=== PATIENT | male | born 1960 | race Caucasian/White ===

== ENCOUNTER 2019-04-22 01:25 | Inpatient (IN) | payer OTHER ==
[~2019-04-22] VITALS: Ht 170.2 cm; Wt 66.2 kg
[~2019-04-22 01:25] MED LIST: PROBIOTIC1 EAC1 PO; ZANTAC 150MG T150 MG PO
[2019-04-22 01:45] VITALS: BP 188/62
[2019-04-22 02:24] LABS: ABSOLUTE BASOPHILS 0.1 thou/uL (0.0-0.2); ABSOLUTE EOSINOPHILS 0.2 thou/uL (0.0-0.7); ABSOLUTE LYMPHOCYTES 1.2 thou/uL (0.8-5.3); ABSOLUTE MONOCYTES 0.7 thou/uL (0.0-1.2); ABSOLUTE NEUTROPHILS 9.5 thou/uL (1.6-8.1); BASOPHILS 0.5 %; HEMATOCRIT 42.6 % (42.0-52.0); HEMOGLOBIN 14.7 gm/dL (14.0-18.0); LYMPHOCYTES 10.5 %; MCHC 34.5 g/dL (28.0-37.0); MCV 95.7 fL (80.0-100.0); MONOCYTES 6.2 %; MPV 8.5 fl. (7.2-11.1); NUCLEATED RBCS 0 /100WBC; PLATELET COUNT* 171 thou/uL (150-400); POLYS 80.8 %; RBC 4.45 mil/uL (4.50-6.00); RDW-CV 13.8 % (10.5-14.5); WBC 11.7 thou/uL (4.0-11.0)
[2019-04-22 02:33] LABS: CALCIUM 8.9 mg/dL (8.5-10.1); CREATININE 1.2 mg/dL (0.6-1.3); POTASSIUM 4.1 mmol/L (3.5-5.1)
[2019-04-22 02:35] LABS: APTT 24.1 Seconds (25.0-31.3)
[2019-04-22 02:37] LABS: TOTAL BILIRUBIN 0.2 mg/dL (<0.1-1.0); TOTAL PROTEIN 7.7 g/dL (6.4-8.2)
[2019-04-22 04:23] VITALS: BP 159/59
[2019-04-22 08:10] VITALS: BP 169/59
--- NOTE | 2019-04-22 11:08 | EKG ---
[place] [address] ELECTROCARDIOGRAM REPORT Name: CONNIE CUEVAS Room: [address] ADM IN M.R.#: [id number] Admission: 04/22/19 Attend Phys: Tai Santos MD Discharge: Date of : 56 Report #: [id number] THIS REPORT FOR: //name// [facility] Test Date: 2019-04-22 Test Time: 09:08:39 Pat Name: CONNIE CUEVAS Department: Room: [address] Gender: M Set Up Person: : 1960 Requested By: Tai Santos Order Number: [id number] MD: Dontrell Ambrosio Measurements Intervals [place] Rate: 80 P: 51 OR: 145 QRS: 61 QRSD: 81 T: -77 QT: 379 QTc: 438 Interpretive Statements Sinus rhythm Probable left atrial enlargement Anteroseptal infarct, old Repol abnrm suggests ischemia, anterolateral Compared to ECG 09/14/2015 10:28:16 Myocardial infarct finding now present Early repolarization now present Possible ischemia now present Sinus bradycardia no longer present Electronically Signed On 04-22-2019 11:08:13 CROP CONSULTANT by Dontrell Ambrosio [email or web address] <ELECTRONICALLY SIGNED> By: Dontrell Ambrosio MD, FACC 04/22/19 1108 0908 Dontrell Ambrosio MD, FAC /EPI
--- NOTE | 2019-04-22 11:08 | EKG ---
[place] [address] ELECTROCARDIOGRAM REPORT Name: CONNIE CUEVAS Room: [address] ADM IN M.R.#: [id number] Admission: 04/22/19 Attend Phys: Tai Santos MD Discharge: Date of : 56 Report #: [id number] THIS REPORT FOR: //name// [facility] ED Test Date: 2019-04-22 Test Time: 02:50:33 Pat Name: CONNIE CUEVAS Department: Room: [facility] Gender: M Test Lead: AJ : 1960 Requested By: Shirley Crane Order Number: [id number] MD: Dontrell Ambrosio Measurements Intervals [place] Rate: 74 P: 47 VA: 151 QRS: 59 QRSD: 83 T: -88 QT: 394 QTc: 438 Interpretive Statements Sinus rhythm Probable left atrial enlargement Abnormal T, consider ischemia, diffuse leads Compared to ECG 09/14/2015 10:28:16 T-wave abnormality now present Possible ischemia now present Sinus bradycardia no longer present Electronically Signed On 04-22-2019 11:07:51 WIREWORKER SUPERVISOR by Dontrell Ambrosio [email or web address] <ELECTRONICALLY SIGNED> By: Dontrell Ambrosio MD, FACC 04/22/19 1107 0250 0250 Dontrell Ambrosio MD, FAC /EPI
[2019-04-22 11:28] VITALS: BP 169/59
--- NOTE | 2019-04-22 11:57 | NUR ---
PT.IN SURGERY. CM UNABLE TO SEE AT THIS TIME. SAPNA/JULIA COOK CAME BY TO SEE PT.TO DISCUSS MEDICAID. SHE SAID SHE WOULD FOLLOW UP TOMORROW WITH HIM.
--- NOTE | 2019-04-22 19:03 | NUR ---
ASSUMED CARE OF PATIENT AT APPROX 0730. ALERT AND ORIENTED X4. ASSESSMENT COMPLETED AND CHARTED. VSS ON ROOM AIR. [ATIENT TO PACU AT APPROX 1130 AND RETURNED AT 1650. PATIENT REMIANS ALERT AND ORIENTED AND VITALS REMAIN STABLE ON 3 LITERS. NO COMPLAINTS OF PAIN. BANANA BAG STARTED AND INFUSED ORDERED, PATIENT WAS OF UNIT BY THE TIME THE BAG ARRIVED FROM PHARMACY. PATIENT REQUESTED TO HAVE A PILLOW PLACED BETWEEN LEGS RATHER THAN THE ADDUCTOR WEDGE. FALL PRECAUTIONS PLACE. CALL LIGHT WITHIN REACH. HOURLY ROUNDS COMPLETED. NURSING WILL CONTINUE TO MONITOR.
[2019-04-22 19:59] VITALS: BP 172/65
[2019-04-23 04:12] LABS: HEMATOCRIT 36.9 % (42.0-52.0)
[2019-04-23 04:18] LABS: HEMOGLOBIN 12.3 gm/dL (14.0-18.0)
--- NOTE | 2019-04-23 06:57 | NUR ---
ASSUMED CARE OF PT 04/22/19 AT APPROX 1930, PT A&OX4 THROUGHOUT SHIFT, VSS, PT ON O2 1L NC, PAIN MEDS REQUESTED AND ADMINISTERED ORDERED, ASSESSMENTS AND HOURLY ROUNDINGS COMPLETED, WILL CONTINUE TO MONITOR.
[2019-04-23 08:00] VITALS: BP 186/74
--- NOTE | 2019-04-23 14:34 | NUR ---
cm completed initial assessment to discuss d/c plan. pt lives with his friend, Fitz Newton and Fitz's g/f. pt unemployed, has no income or savings so [facility] contacted [facility], [place] [phone] x [phone], re: applying to medicaid. pt states he lost his license d/t DUI. pt states he cant work d/t inability to drive so he has no transportation. pt has no DME. pt's friend concerned about allowing pt to return to his home w/o therapy in place if pt is unable to walk up stairs, as there are 12 stairs to get into home. cm provided pt with a resource packet and good rx card. cm to cont to follow to assist as needed.
--- NOTE | 2019-04-23 15:00 | NUR ---
SPOKE WITH JOÃO/CLEO[employer] SWEETIE EARLIER TODAY ,ABOUT PT.,WITHOUT INSURANCE. PT.WOULD NEED TO BE APPROVED TO GO TO INPT.REHAB BY CNO/PROFESSOR OF LANGUAGES , PENDING ON HOW PT.DOES IN THERAPY. IF DISCHARGED HOME, PT.WILL BE UNABLE TO RECEIVE P.T. HOME HEALTH OR OUTPT.P.T.UNLESS HE IS ABLE TO PAY OUT OF POCKET FOR IT. CM WILL FOLLOW. PLEASE SEE OTHER CM NOTE FROM TODAY.
--- NOTE | 2019-04-23 18:54 | NUR ---
ASSUMED CARE OF PATIENT AT APPROX 0730. ALERT AND ORIENTED X4. ASSESSMENT COMPLETED AND CHARTED. VSS ON ROOM AIR. PAIN MANAGED WITH NORCO NEEDED. PATIENT UP WITH GAIT BELT AND WALKER. USING URINAL AT BEDSIDE WHEN NOT UP IN THE CHAIR. NO OTHER COMPLAINTS THIS SHIFT. FALL PRECAUTIONS IN PLACE. CALL LIGHT WITHIN REACH. HOURLY ROUNDS COMPLETED. NURSING WILL CONTINUE TO MONITOR.
[2019-04-24] VITALS: BP 157/66
[2019-04-24 04:00] VITALS: BP 154/63
--- NOTE | 2019-04-24 06:04 | NUR ---
PATIENT HAS SLEPT WELL THROUGHOUT MOST OF THE NIGHT. VSS ON RA. PAIN WELL CONTROLLED DURING THE SHIFT. MEDICATIONS GIVEN ORDERED AND CHARTED. ASSESSMENT CHARTED. PATIENT HAS ONLY USED BEDSIDE URINAL DURING THE NIGHT. DRESSING TO RIGHT HIP IS C/D/I AND ICE PACK AND SCD'S IN PLACE. FALL PRECAUTIONS IN PLACE AND HOURLY ROUNDS MADE. WILL CONTINUE WITH PLAN OF CARE AND NURSING TO MONITOR.
[2019-04-24 08:00] VITALS: BP 172/69
--- NOTE | 2019-04-24 09:03 | NUR ---
Pt is patient pay, did well with therapies yesterday, Per weekday CM, may be doing too well for acute rehab. Pt placed on aspirin instead of more expensive blood thinner. Unsure if Pt will need DME, but if so, recommend [facility] donating vs purchasing in the the community. Per weekday CM, Pt has limited income.
[2019-04-24 16:00] VITALS: BP 160/54
--- NOTE | 2019-04-24 17:10 | NUR ---
ASSUMED CARE OF PATIENT AT APPROX 0730. ALERT AND ORIENTED X4. ASSESSMENT COMPLETED AND CHARTED. VSS ON ROOM AIR. PAIN MANAGED WITH NORCO, TRAMADOL AND LIDOCAINE PATCH. PATIENT UP TO THE CHAIR TODAY. WORKING WITH THERAPIES AND PROGRESSING TOWARD GOALS. NO OTHER COMPLAINTA THIS SHIFT. FALL PRECAUTIONS IN PLACE. CALL LIGHT WITHIN REACH. HOURLY ROUNDS COMPLETED. NURSING WILL CONTINUE TO MONITOR.
[2019-04-24 21:20] VITALS: BP 141/63
[2019-04-25 00:10] VITALS: BP 149/50
[2019-04-25 03:36] VITALS: BP 148/52
--- NOTE | 2019-04-25 04:41 | NUR ---
PATIENT HAS REMAINED ALERT AND ORIENTED X 4 THROUGHOUT THE SHIFT AND RESTING AT INTERVALS ON HOURLY ROUNDS. POSITIONING SELF IN BED. DRESSING RIGHT HIP CLEAN AND DRY. ICE PACKS APPLIED. DENIES NAUSEA THIS SHIFT THOUGH DID HAVE SOME HEARTBURN AFTER EPISODE OF HICCUPS. VITAL SIGNS STABLE. HAS ONLY REQUIRED SCHEDULED TRAMADOL FOR PAIN. CONTINUE TO MONITOR.
[2019-04-25 08:10] VITALS: BP 156/49
[2019-04-25 17:03] VITALS: BP 150/55
--- NOTE | 2019-04-25 17:06 | NUR ---
ASSUMED CARE OF PATIENT AT APPROX 0730. ALERT AND ORIENTED X4. ASSESSMENT COMPLETED AND CHARTED. VSS ON ROOM AIR. PAIN MANAGED WITH SCHEDULED AND PRN ORAL MEDICATIONS. NO OTHER COMPLAINTS THIS SHIFT. PATIENT UP WITH GAIT BELT AND WALKER. UP IN THE CHAIR TODAY. FALL PRECAUTIONS IN PLACE. CALL LIGHT WITHIN REACH. HOURLY ROUNDS COMPLETED. NURSING WILL CONTINUE TO MONITOR.
[2019-04-25 19:37] VITALS: BP 154/54
[2019-04-26 04:39] VITALS: BP 153/59
--- NOTE | 2019-04-26 04:54 | NUR ---
PATIENT HAS REMAINED ALERT AND ORIENTED X 4 THROUGHOUT THE SHIFT AND RESTING QUIETLY ON HOURLY ROUNDS. MEDICATED FOR PAIN X3 INCLUDING X2 SCHEDULED TRAMADOL TO GOOD EFFECT. DRESSING RIGHT HIP CLEAN AND DRY. VOIDS PER URINAL. BM 04/25/19. VITAL SIGNS STABLE. MOVING SELF IN BED. PILLOW ABDUCTION. NO TRANSFERS THIS SHIFT TO EVALUATE. CONTINUE TO MONITOR.
[2019-04-26 08:45] VITALS: BP 141/53
[2019-04-26] MEDS ORDERED: LIDOCAINE PAIN1 EACH TOP (09:19)
[2019-04-26] MEDS ORDERED: ASPIRIN325 PO (09:19)
[2019-04-26] MEDS ORDERED: TRAMADOL 50 MG50 MG PO (09:19)
[2019-04-26] MEDS ORDERED: HYDROCODON-ACE1 EAC7 PO (09:19)
[2019-04-26] MEDS ORDERED: PRINIVIL20 MG PO (09:19)
--- NOTE | 2019-04-26 14:00 | NUR ---
PT.DOING WELL AND IS BEING DISCHARGED TODAY. WILL GO HOME WITH FRIEND AND FRIENDS . PT.SAID HE BORROWED A WALKER FROM A FRIEND. MARCELINA [facility] WITH [facility]-2 [facility] P.T. VISITS. FAXED HER INFORMATION NEEDED. FAXED PRESCRIPTIONS FOR TRAMADOL,LISINOPRIL,AND ASA TO [facility] [phone]. TO BE CHARGED TO [facility]. PT.TO TAKE HARD COPY OF HYDROCODONE TO PHARMACY. MARCELINA UNABLE TO GET LIDOCAINE PATCH FOR PT. TOO EXPENSIVE. GARY/[facility] CONFIRMED SCRIPTS WERE RECEIVED. INFORMED PT.ABOUT MEDS BEING READY FOR DETECTIVE LIEUTENANT AT [facility] [address] IN ABOUT 2 HRS. ALSO REGARDING A COUPLE OF [facility] FOR HH VISITS. HIS FRIEND DOMINIC WILL COME TO DRIVE HIM HOME WHEN NURSING CALLS.
[2019-04-26 14:54] VITALS: BP 141/53
[2019-04-26 14:57] VITALS: BP 141/53
[2019-04-26 14:58] VITALS: BP 141/53
[2019-04-26 14:59] VITALS: BP 141/53
--- NOTE | 2019-04-26 19:55 | NUR ---
I ASSUMED CARE OF THE PATIENT AT 0700. BED IS IN THE LOW LOCKED POSITION AND CALL LIGHT IS IN REACH. HOURLY ROUNDING IS COMPLETED AND PATIENT NEEDS ARE MET. PAIN IS MANAGED WITH PRN MEDS. CASE MANAGEMENT IS WORKING ON SCRIPTS AND THERAPY FOR AFTER DISCHARGE. HE DID WELL IN THERAPY. PATIENT IS DISCHARGED TO A FRIEND'S HOUSE WITH SCRIPTS AND MEDS CALLED IN TO A [facility] ACCOUNT WITH PHARMACY. PAPER SCRIPTS ARE ALSO GIVEN.
--- NOTE | 2019-05-04 12:04 | OP ---
[address] [address] OPERATIVE REPORT Name: CONNIE CUEVAS [place] Room: [address]#: [id number] Admission: 04/22/19 Attend Phys: Tai Santos MD Discharge: 04/26/19 Date of : 56 Report #: [id number] THIS REPORT FOR: //name// CC: [facility] physician/PCP Tai Santos DATE OF SERVICE: 04/22/2019 PREOPERATIVE DIAGNOSIS: Closed subcapital right hip fracture. POSTOPERATIVE DIAGNOSIS: Closed subcapital right hip fracture. OPERATION PERFORMED: Hemiarthroplasty, right hip. SURGEON: Dontrell Razo DO BAREBACK RIDER: Juan Elizalde DO SECOND MONOGRAM TECHNICIAN: Anup Hernandez DO ANESTHESIA: General. GROSS PATHOLOGY: There was evidence of a closed subcapital right hip fracture, which extended to the base of the neck. The patient has alcohol abuse, did have contractures about the hip and the quality of his bone was osteoporotic. IMPLANTS UTILIZED: Paco VerSys system, size 13 standard, 49 bipolar cup, a +3.5 neck length. DESCRIPTION OF PROCEDURE: The patient was brought to the operating room where general anesthetic was administered. Preoperative antibiotics were given. The patient was placed on the operating table with the right hip up. Hibiclens scrub and a ChloraPrep prep were done to the right hip, leg. The patient was draped in a sterile manner. An incision was made approximately 4-1/2 inches in length on the lateral aspect of the right hip. It was carried down through the skin and subcuticular material by sharp dissection. Tensor fascia janice split in line with the incision, Gluteus medius and minimus were transected at the musculotendinous junction. An opening H-type capsulotomy was performed. Femoral neck was further exposed. There was marked comminution of this with also missing bony tissue in the posterior wall of the neck. The neck was then squared up as much as could be with the saw. The femoral head was removed. The trial 49 was noted to fit well. It is removed. Attention was turned back to the femur where the box osteotome was utilized to remove the medial portion of the greater trochanter. The T-reamer was placed down the shaft and the trochanteric broach is utilized. The femur was then reamed with the broach up to 13 mm, which was a good fit. The trial acetabular components were assembled, [place] [address] OPERATIVE REPORT Name: CONNIE CUEVAS Room: [address]#: [id number] Admission: 04/22/19 Attend Phys: Tai Santos MD Discharge: 04/26/19 Date of : 56 Report #: [id number] placed on the femoral component. The hip was reduced. Components fit well and the hip was stable. The trial components were removed. The final femoral stem was impacted into position with a good fit. The bipolar cup was assembled and impacted onto the femur. The components fit well. The hip was reduced. The hip was noted to be stable. The remaining capsule was closed with a hard Vicryl suture, gluteus medius and minimus reattached with a #5 Tycron suture, tensor fascia janice closed with 1 Vicryl suture, subcutaneous with 2-0 Vicryl and meghna on the skin. Estimated blood loss approximately 150 mL. The wound was thoroughly irrigated throughout the entire procedure. Needle and sponge count reported as correct. The area is anesthetized with Marcaine 0.5% plain, approximately 30 mL at time of closure. The patient transferred to recovery room in stable condition. <ELECTRONICALLY SIGNED> By: Marcio Siu DO 05/04/19 1204 1502 [id number] Razo DO /garett
== END 2019-04-26 18:25 | disposition home or self-care (01) | DRG 470 ==
LOC: M.ERS 01:25 → M.TBA-ER 03:18 → M.ORTHSURG 03:18
PROVIDERS: Personal Emergency Response Attendant; ADMIT Internal Medicine
PROC: 0SRR0JA Replacement of Right Hip Joint, Femoral Surface with Synthetic Substitute, Uncemented, Open Approach (ICD-10-PCS; principal; 2019-04-22)
DX: S72.011A Unspecified intracapsular fracture of right femur, initial encounter for closed fracture (principal); M80.051A Age-related osteoporosis with current pathological fracture, right femur, initial encounter for fracture; F17.210 Nicotine dependence, cigarettes, uncomplicated; D72.829 Elevated white blood cell count, unspecified; W19.XXXA Unspecified fall, initial encounter; Y93.89 Activity, other specified; Y92.89 Other specified places as the place of occurrence of the external cause; Y99.8 Other external cause status; Z87.11 Personal history of peptic ulcer disease; Z88.8 Allergy status to other drugs, medicaments and biological substances; Z23 Encounter for immunization